=== PATIENT | female | born 1990 | race Caucasian/White ===

== ENCOUNTER 2021-04-25 11:33 | Emergency (ER) | payer BC, MEDICAID, SELFPAY ==
[2021-04-25 11:42] VITALS: BP 141/90; PULSE 98; RESP 18; TEMP 36.8; O2SAT 97; BMI 37.5
--- NOTE | 2021-04-25 11:53 | ED_ITS ---
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
[2021-04-25] MEDS: sodium chloride 0.9% 1,000 ML 999 ML IV (12:26)
[2021-04-25 12:45] LABS: Basophils % 0.4 %; Eosinophils # 0.2 10^3/uL (0.0-0.8); Hematocrit 38.3 % (37.0-47.0); Hemoglobin 13.4 g/dL (11.5-15.3); Lymphocytes % 27.6 %; Mean Corpuscular Hemoglobin 29.3 pg (28.0-34.0); Mean Corpuscular Volume 83.8 fl (81-99); Mean Platelet Volume 10.1 fL (7.4-10.4); Monocytes # 0.7 10^3/uL (0.2-0.9); Monocytes % 6.3 %; Neutrophils # 6.79 10^3/uL (1.8-7.7); Neutrophils % 63.4 %; Nucleated Red Blood Cells % 0 %; Platelet Count 336 10^3/cmm (130-400); Red Blood Count 4.57 10^6/uL (4.1-5.3); Red Cell Distribution Width 12.8 % (12.1-15.1); White Blood Count 10.7 10^3/uL (4.0-10.0)
[2021-04-25 13:19] LABS: HCG, Serum Qual Negative (Negative)
[2021-04-25 13:20] LABS: Alanine Aminotransferase 11 U/L (0-33); Albumin Level 4.4 g/dL (3.5-5.2); Alkaline Phosphatase 52 IU/L (35-105); Anion Gap 20.2 (5-19); Aspartate Amino Transferase 11 U/L (0-32); Blood Urea Nitrogen 7 mg/dL (6-20); Calcium 9.7 mg/dL (8.5-10.5); Carbon Dioxide 18 mmol/L (22-29); Chloride 101 mmol/L (98-107); Creatine Phosphokinase 79 U/L (26-192); Globulin 2.9 g/dL (1.3-4.6); Glomerular Filtration Rate 146.9 mL/min (90-130); Glucose 94 mg/dL (65-115); Osmolality Calculated 278 mOsm/kg (285-295); Potassium 4.2 mmol/L (3.5-5.1); Sodium 135 mmol/L (136-145); Total Bilirubin 0.2 mg/dL (0.15-1.2); Total Protein 7.3 g/dL (6.6-8.7)
[2021-04-25 13:32] LABS: Add Urine Microscopic? YES; Bacteria Urine TRACE /hpf; Bilirubin Urine Neg (Negative); Blood Urine Neg (Negative); Glucose Urine UA Norm (Normal); Ketones Urine Negative (Negative); Leukocyte Esterase Urine Negative (Negative); Nitrate Urine Negative (Negative); Protein Urine 1+ (Negative); Squamous Epithelial Cell Urine 0-4 /hpf (0-5); Urine Appearance Clear (CLEAR); Urine Color Yellow (Yellow); Urobilinogen Urine Norm (Negative); WBC Urine 0-4 /hpf (0-5); pH Urine 5 (5-7)
[2021-04-25 13:33] LABS: Add Urine Culture? No
--- NOTE | 2021-04-25 13:43 | ED_ITS ---
HPI - General Adult General: Chief complaint: Dizziness Stated complaint: Lightheaded, vomiting, feeling like passing out Time Seen by Provider: 04/25/21 11:52 Source: patient Mode of arrival: ambulatory Limitations: no limitations History of Present Illness: Patient is a nice 30-year-old female presents to ED today with a complaint of generalized weakness and fatigue. Patient tells me yesterday she felt fairly energetic and was outside playing golf a large portion of the day. She states that evening she did feel tired but nothing that she was overly concerned with. She states she slept well and when she awoke this morning she had trouble getting out of bed secondary to fatigue. She went ahead and went to work and while at work she had an episode where she felt dizzy and felt like she might pass out. There was no LOC. Patient admittedly has not ate or drink anything today. She is not having any localized weakness. She has no headache, visual changes, or neck pain. Patient has no chest pain, shortness of breath, difficulty breathing, or palpitations. Onset (ago): hour(s) Relieving factors: none Exacerbating factors: none Associated symptoms: Deny chest pain, confusion, dyspnea, headache(s), nausea, rash, palpitations, syncope or vomiting Treatments prior to arrival: none Review of Systems Const: Reports: fatigue; Denies: fever(s), chills, body aches or change in appetite Eyes: Denies: change in vision or blurry vision ENMT: Denies: throat pain, odynophagia, nasal discharge or nasal congestion Card: Denies: chest pain, palpitations, irregular heart rhythm, edema, swelling of feet/ankles, syncope, dyspnea on exertion, orthopnea, leg pain with exertion or acrocyanosis Resp: Denies: dyspnea, productive cough, non-productive cough, wheezing, hemoptysis or chest congestion GI: Denies: abdominal pain, nausea, vomiting or diarrhea : Denies: flank pain, dysuria or hematuria Musc: Denies: neck pain, back pain, extremity pain or joint pain Skin/Breast: Denies: rash Neuro: Reports: weakness in extremities; Denies: headache(s), numbness in extremities, sensory changes, lack of co ordination, difficulty walking, frequent falls, confusion, behavioral changes, Slurred speech present or difficulty communicating thoughts PFSH ED PFSH: Medical History Psychiatric care Physical Exam Const: COMMON NORMALS: no acute distress, patient oriented x3, no limitations and alert NUTRITIONAL APPEARANCE: obese ORIENTATION/CONSCIOUSNESS: Yes awake, Yes oriented to person, Yes oriented to place and Yes oriented to time HENMT: COMMON NORMALS: normocephalic and atraumatic HEAD & SCALP: normal to inspection, normocephalic and atraumatic Eye: GENERAL EYE: appearance normal, both eyes and all related structures Neck/C-Spine: COMMON NORMALS: full ROM, no lymphadenopathy, supple and no meningeal signs Chest: COMMONS NORMALS: normal inspection of the chest Resp: COMMON NORMALS: normal respiratory effort and clear to auscultation bilaterally AUSCULTATION: clear to auscultation bilaterally Cardio: COMMON NORMALS: regular rate and regular rhythm RATE: regular rate RHYTHM: regular rhythm GI: COMMON NORMALS: Normal to inspection, nondistended, normoactive bowel sounds present, Soft to palpation, non-tender, No hepatosplenomegaly present and no masses PALPATION: Yes Soft to palpation and Yes No hepatosplenomegaly present : COMMON NORMALS: Yes no CVA tenderness BLADDER/KIDNEY EXAM: Yes no CVA tenderness Back/Pelvis: COMMON NORMALS: no CVA tenderness and thoracic and lumbar spine normal to inspection Extremity: COMMON NORMALS: normal to inspection Neuro: ARIES COMA SCALE: document GCS findings Aries coma scale eye opening: Spontaneous Aries coma scale verbal response: Orientated Aries coma scale motor response: Obey commands [place] coma scale total score: 15 COMMON NORMALS: patient oriented x3, CN's II-XII intact bilaterally, moves all extremities, no focal motor deficits and no sensory deficits noted SENSORIUM/ORIENTATION: Yes alert, Yes oriented to person, Yes oriented to place and Yes oriented to time MENINGEAL SIGNS: Yes no meningeal signs Skin: COMMON NORMALS: no rashes or lesions noted GENERAL SKIN EXAM: no rashes or lesions noted Course Vital Signs: Vital signs: Vital Signs Temperature 98.3 F 04/25/21 11:42 Pulse Rate 98 04/25/21 11:42 Respiratory Rate 18 04/25/21 11:42 Blood Pressure 141/90 04/25/21 11:42 Pulse Oximetry 97 04/25/21 11:[address] [facility] - General Adult Medical Decision Making Patient is a 30-year-old here for complaints of generalized weakness/fatigue and a presyncopal episode at work earlier. Patient is not having any chest pain, shortness of breath, difficulty breathing, palpitations. No neurological complaints. She does not complain of pain anywhere. No recent illness. No fevers. Her vital signs are stable. Blood work consisting of CBC, CMP, hCG, CPK are all unremarkable. Her UA looks normal. She was given a liter of fluids here. Recommend patient rest over the next 24 to 48 hours. Recommend follow-up with her primary care provider this week if symptoms persist. Return to ED precautions given. Lab Data : 04/25/21 12:27 04/25/21 12:27 Laboratory Results WBC 10.7 10^3/uL (4.0-10.0) H 04/25/21 12:27 RBC 4.57 10^6/uL (4.1-5.3) 04/25/21 12:27 Hgb 13.4 g/dL (11.5-15.3) 04/25/21 12:27 Hct 38.3 % (37.0-47.0) 04/25/21 12:27 MCV 83.8 fl (81-99) 04/25/21 12:27 MCH 29.3 pg (28.0-34.0) 04/25/21 12:27 MCHC 35.0 g/dL (30.0-36.0) 04/25/21 12:27 RDW 12.8 % (12.1-15.1) 04/25/21 12:27 Plt Count 336 10^3/cmm (130-400) 04/25/21 12:27 MPV 10.1 fL (7.4-10.4) 04/25/21 12:27 Neut % (Auto) 63.4 % 04/25/21 12:27 Lymph % (Auto) 27.6 % 04/25/21 12:27 [place] % (Auto) 6.3 % 04/25/21 12:27 Eos % (Auto) 2.0 % 04/25/21 12:27 Baso % (Auto) 0.4 % 04/25/21 12:27 Neut # (Auto) 6.79 10^3/uL (1.8-7.7) 04/25/21 12:27 Lymph # (Auto) 3.0 10^3/uL (0.8-4.8) 04/25/21 12:27 [place] # (Auto) 0.7 10^3/uL (0.2-0.9) 04/25/21 12:27 Eos # (Auto) 0.2 10^3/uL (0.0-0.8) 04/25/21 12: Baso # (Auto) 0.0 10^3/uL (0.0-0.1) 04/25/21 12:27 Nucleated RBC % (auto) 0 % 04/25/21 12: Nucleated RBCs # 0.0 /100WBC 04/25/21 12:27 Sodium 135 mmol/L (136-145) L 04/25/21 12: Potassium 4.2 mmol/L (3.5-5.1) 04/25/21 12: Chloride 101 mmol/L (98-107) 04/25/21 12: Carbon Dioxide 18 mmol/L (22-29) L 04/25/21 12:27 Anion Gap 20.2 (5-19) H 04/25/21 12:27 BUN 7 mg/dL (6-20) 04/25/21 12:27 Creatinine 0.5 mg/dL (0.5-0.9) 04/25/21 12:27 GFR Calculation 146.9 mL/min (90-130) H 04/25/21 12: Glucose 94 mg/dL (65-115) 04/25/21 12: Calculated Osmolality 278 mOsm/kg (285-295) L 04/25/21 12: Calcium 9.7 mg/dL (8.5-10.5) 04/25/21 12: Total Bilirubin 0.2 mg/dL (0.15-1.2) 04/25/21 12: AST 11 U/L (0-32) 04/25/21 12: ALT 11 U/L (0-33) 04/25/21 12:27 Alkaline Phosphatase 52 IU/L (35-105) 04/25/21 12:27 Creatine Kinase 79 U/L (26-192) 04/25/21 12:27 Total Protein 7.3 g/dL (6.6-8.7) 04/25/21 12:27 Albumin 4.4 g/dL (3.5-5.2) 04/25/21 12:27 Globulin 2.9 g/dL (1.3-4.6) 04/25/21 12:27 HCG, Qual Negative (Negative) 04/25/21 12:27 Urine Color Yellow (Yellow) 04/25/21 12:43 Urine Appearance Clear (CLEAR) 04/25/21 12:43 Urine pH 5 (5-7) 04/25/21 12:43 Ur Specific [place] 1.020 (1.005-1.030) 04/25/21 12:43 Urine Protein 1+ (Negative) H 04/25/21 12:43 Urine Glucose (UA) Norm (Normal) 04/25/21 12:43 Urine Ketones Negative (Negative) 04/25/21 12:43 Urine Blood Neg (Negative) 04/25/21 12:43 Urine Nitrate Negative (Negative) 04/25/21 12:43 Urine Bilirubin Neg (Negative) 04/25/21 12:43 Urine Urobilinogen Norm mg/dL (Negative) 04/25/21 12:43 Ur Leukocyte Esterase Negative (Negative) 04/25/21 12:43 Urine RBC None /hpf (0-2) 04/25/21 12:43 Urine WBC 0-4 /hpf (0-5) H 04/25/21 12:43 Ur Squamous Epith Cells 0-4 /hpf (0-5) H 04/25/21 12:43 Amorphous Sediment Not Reportable 04/25/21 12:43 Urine Bacteria Trace /hpf (NONE) 04/25/21 12:43 Discharge Plan Discharge Patient Disposition: Home Clinical Impression: Weakness generalized Condition: Stable Discharge Orders: Discharge ED (Routine); Ordered 04/25/21 Ordered By: Shirin Azul Coding Level of Care Code 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
== END 2021-04-25 14:29 | disposition home or self-care (01) ==
PROVIDERS: Emergency Provider Physician Assistant
DX: R53.1 Weakness (principal)
CPT/HCPCS: 80053; 81001; 82550; 84703; 85025; 96360; 99283; J7030

== ENCOUNTER → 2021-05-06 09:45 | Outpatient (BNVA) | payer BC, MEDICAID, SELFPAY | PROVIDERS: Visit Provider Social Worker | DX: F60.3 Borderline personality disorder (principal); F41.1 Generalized anxiety disorder | CPT/HCPCS: 90837 ==

== ENCOUNTER → 2021-05-10 08:52 | Outpatient (BNVA) | payer BC, MEDICAID, SELFPAY | PROVIDERS: Visit Provider Social Worker | DX: F60.3 Borderline personality disorder (principal); F41.1 Generalized anxiety disorder | CPT/HCPCS: 90837 ==

== ENCOUNTER → 2021-05-12 08:37 | Outpatient (BNVA) | payer BC, MEDICAID, SELFPAY | PROVIDERS: Visit Provider Psychiatry & Neurology Psychiatry | DX: F60.3 Borderline personality disorder (principal); F43.12 Post-traumatic stress disorder, chronic; F41.1 Generalized anxiety disorder; F33.1 Major depressive disorder, recurrent, moderate; F12.21 Cannabis dependence, in remission | CPT/HCPCS: 99204 ==

== ENCOUNTER → 2021-05-31 09:00 | Outpatient (BNVA) | payer BC, SELFPAY | PROVIDERS: Visit Provider Social Worker | DX: F60.3 Borderline personality disorder (principal); F41.1 Generalized anxiety disorder | CPT/HCPCS: 90837 ==

== ENCOUNTER → 2021-06-07 09:03 | Outpatient (BNVA) | payer BC, SELFPAY | PROVIDERS: Visit Provider Social Worker | DX: F41.1 Generalized anxiety disorder (principal) | CPT/HCPCS: 90834 ==

== ENCOUNTER → 2021-06-14 07:32 | Outpatient (BNVA) | payer BC, SELFPAY | PROVIDERS: Visit Provider Social Worker | DX: F60.3 Borderline personality disorder (principal); F41.1 Generalized anxiety disorder | CPT/HCPCS: 90837; 90834 ==

== ENCOUNTER → 2021-07-05 08:59 | Outpatient (BNVA) | payer BC, SELFPAY | PROVIDERS: Visit Provider Social Worker | DX: F60.3 Borderline personality disorder (principal); F41.1 Generalized anxiety disorder | CPT/HCPCS: 90837 ==

== ENCOUNTER → 2021-12-08 19:13 | Outpatient (BNVA) | payer BC, MEDICAID, SELFPAY | PROVIDERS: Visit Provider Emergency Medicine | DX: J02.9 Acute pharyngitis, unspecified (principal) | CPT/HCPCS: 87071; 87880 ==